=== PATIENT | female | born 1930 | race Caucasian/White ===

== ENCOUNTER 2017-11-22 00:43 | Inpatient (IN) | payer MEDICARE, OTHER ==
[~2017-11-22] VITALS: Ht 157.5 cm; Wt 62.3 kg
--- NOTE | 2017-11-22 01:25 | NUR ---
PT IN BED. PT'S FAMILY AT BEDSIDE. MD LAM AT BEDSIDE CONDUCTING MD SANCHEZ.
[2017-11-22 02:13] LABS: *BILIRUBIN,URIN NEGATIVE (NEGATIVE); *BLOOD, URINE 1+ (NEGATIVE); *CLARITY,URINE CLEAR (CLEAR); *COLOR,URINE YELLOW (YELLOW); *KETONES,URINE NEGATIVE (NEGATIVE); *PROTEIN,URINE NEGATIVE (NEGATIVE); LEUKOCYTE ESTERASE ,URINE NEGATIVE (NEGATIVE); NITRITE, URINE NEGATIVE (NEGATIVE); UGLUCOSE TRACE (NEGATIVE)
[2017-11-22 02:20] LABS: BACTERIA,URINE NONE SEEN /HPF (NONE SEEN); SQUAMOUS EPITHELIAL CELL,UR FEW /HPF (NONE SEEN); WBC,URINE 0-3 /HPF (0-3)
--- NOTE | 2017-11-22 02:25 | NUR ---
MD LAM MADE AWARE OF ELEVATED BLOOD PRESSURE
[2017-11-22] MEDS ORDERED: CLONIDINE HCL 0.1 MG TABLET ONE (02:27)
[2017-11-22] MEDS ORDERED: CLONIDINE HCL 0.1 MG TABLET PO ONE (02:30)
--- NOTE | 2017-11-22 03:35 | NUR ---
spoke with family.they know what medications are for but not the names and doses.will bring meds in am
[2017-11-22] MEDS ORDERED: ACETAMINOPHEN 325 MG TABLET PO PRN (03:45)
[2017-11-22] MEDS ORDERED: MAGNESIUM HYDROXIDE 30 ML LIQUID UDC PO PRN (03:45)
[2017-11-22] MEDS ORDERED: Z GUARD REMEDY PASTE 57 GM TUBE TOP PRN (03:45)
[2017-11-22] MEDS ORDERED: ONDANSETRON 4 MG/2 ML VIAL IV PRN (03:45)
--- NOTE | 2017-11-22 04:30 | NUR ---
REPORT GIVEN TO 2ND FLOOR, TELEMETRY NURSE, ZOË
[2017-11-22 04:38] LABS: HEMATOCRIT 34.5 % (37-47); HEMOGLOBIN 11.6 G/DL (12.0-16.0); MEAN CORPUSCULAR HEMOGLOBIN 27.7 UUG (27.0-31.0); MEAN CORPUSCULAR HGB CONC 34 g/dL (32.0-37.0); MEAN CORPUSCULAR VOLUME 82.3 FL (81.0-99.0); RED BLOOD CELL COUNT(AUTO) 4.19 MIL/UL (4.2-5.4); WHITE BLOOD COUNT (AUTO) 11.4 K/UL (4.0-11.2)
[2017-11-22 04:39] LABS: BASOPHILS % (AUTO) 0.4 % (0.0-2.0); EOSINOPHILS % (AUTO) 0.6 % (0.0-7.0); LYMPHOCYTES % (AUTO) 3.6 % (20.5-51.5); MONOCYTES % (AUTO) 8.4 % (0.0-11.0); PLATELET COUNT (AUTO) 166 K/UL (150-450)
[2017-11-22 04:58] LABS: CARBON DIOXIDE 26 mmol/L (21-32); CHLORIDE 95 mmol/L (98-107); GLUCOSE 162 mg/dL (74-106); POTASSIUM 3.7 mmol/L (3.5-5.1); UREA NITROGEN, BLOOD 36 mg/dL (7-20)
[2017-11-22 04:59] LABS: ALANINE AMINOTRANSFERASE 21 U/L (14-59); ALKALINE PHOSPHATASE 71 U/L (50-136); ASPARTATE AMINOTRANSFERASE 16 U/L (15-37); BILIRUBIN,TOTAL 0.8 mg/dL (0.1-1.0); CREATININE 1.5 mg/dL (0.6-1.3); PHOSPHOROUS 3.6 mg/dL (2.5-4.9)
[2017-11-22 05:00] LABS: MAGNESIUM 2.1 mg/dL (1.8-2.4); TOTAL PROTEIN, SERUM 7.1 g/dL (6.4-8.2)
--- NOTE | 2017-11-22 05:05 | NUR ---
Pt. admitted to TELEMETRY, under care of Dr. SEPULVEDA Belongs List completed
[2017-11-22 05:06] LABS: THYROID STIMULATING HORMONE 3.169 mIU/mL (0.358-3.740)
[2017-11-22 05:16] LABS: CHOLESTEROL 112 mg/dL (<200); HDL CHOLESTEROL 38 mg/dL (40-60); TRIGLYCERIDES 57 MG/DL (30-150)
[2017-11-22 05:30] VITALS: BP 157/83
--- NOTE | 2017-11-22 05:30 | NUR ---
Received patient to TELE floor with 2 daughters at bedside translating for patient. No skin issues noted. Belongings list completed. Daughters are asking a lot of questions. They are also saying that if patient needs surgery, she will not be having it at [facility] since "it's not a orthopedic hospital." Family states they are being left in the dark regarding care. Relayed to daughters all the information I had at this time and relayed at test and lab results that were available. Patient being kept NPO at this time except for medications. Patient is crying, but when asked states its not due to pain.
[2017-11-22] MEDS: HYDROCODONE/APAP 5-325MG TABLET PO PRN ×2 (05:45→20:44)
--- NOTE | 2017-11-22 08:14 | NUR ---
Pt is being seen and evaluated by Dr Seymour
--- NOTE | 2017-11-22 08:16 | NUR ---
Received medication from family members: escitalopram, Prednisolone, valsartan, zioptan
--- NOTE | 2017-11-22 08:23 | NUR ---
Called Dr Clayton and he is aware of the consultation needed for today. Family is also aware that Dr Clayton has been contacted
--- NOTE | 2017-11-22 08:28 | NUR ---
Will order breakfast and lunch for today and keep pt NPO after lunch, as ordered by Dr Seymour
[2017-11-22] MEDS ORDERED: PRED5DRO16 RIGHTEYE (09:15)
[2017-11-22] MEDS ORDERED: TAFL1DRO OP (09:18)
[2017-11-22] MEDS ORDERED: ESCI10TA55 PO (09:21)
[2017-11-22] MEDS ORDERED: VALS1TAB4 PO (09:21)
--- NOTE | 2017-11-22 09:30 | NUR ---
Family is requesting [facility] ([facility]) for B-L-D as supplement. Dietary informed. Home meds as previously mention given to pharmacy
[2017-11-22] MEDS ORDERED: ESCITALOPRAM OXALATE 10 MG TABLET PO SCH (10:45)
[2017-11-22] MEDS: ESCITALOPRAM OXALATE 10 MG TABLET PO SCH (11:09)
[2017-11-22] MEDS: PREDNISOLONE ACET 1% RIGHTEYE SCH ×2 (11:09→17:11)
--- NOTE | 2017-11-22 11:24 | NUR ---
Daughters request that I reach out to Dr Calloway and ask what is the expect hospital stay for the pt. Message was left for Dr. Calloway to please call back at his earliest convenience
[2017-11-22] MEDS: IV 1/2NS 1000 ML 1,000 ML IV PRN (11:31)
[2017-11-22 11:45] VITALS: BP 91/48
[2017-11-22 16:14] VITALS: BP 103/55
--- NOTE | 2017-11-22 18:17 | NUR ---
Pt has been complaint with nursing care and medications. Pt had her daughters by her side throughout the morning and early afternoon. Pt had visitors up till 4pm this afternoon. Pt states no pain. No immediate s/s of SOB, pain, distress or discomfort.
--- NOTE | 2017-11-22 19:30 | NUR ---
PATIENT IN BED, NO SOB NO CHEST PAIN NOTED, TURN AND REPOSITION, RYTHM SINUS RYTHM, FAMILY AT BEDSIDE, REQUEST FOR PAIN MEDS BEFORE GOING TO SLEEP TONIGHT. TURN AND REPOSITION, KEPT CLEAN AND DRY.
[2017-11-22 20:00] VITALS: BP 129/69
[2017-11-22] MEDS: ATORVASTATIN 10 MG TABLET PO SCH (20:40)
[2017-11-22] MEDS: TAFLUPROST EACHEYE SCH (20:40)
[2017-11-23] VITALS: BP 101/52
[2017-11-23 04:00] VITALS: BP 105/57
[2017-11-23 05:49] LABS: BASOPHILS % (AUTO) 0.4 % (0.0-2.0); EOSINOPHILS # (AUTO) 0.2 K/uL (0.0-0.7); EOSINOPHILS % (AUTO) 3.2 % (0.0-7.0); HEMATOCRIT 30.7 % (31.2-41.9); HEMOGLOBIN 10.5 g/dL (10.9-14.3); LYMPHOCYTES # (AUTO) 0.9 K/uL (20.0-40.0); LYMPHOCYTES % (AUTO) 12.7 % (20.5-51.5); MEAN CORPUSCULAR HEMOGLOBIN 28.5 uug (24.7-32.8); MEAN CORPUSCULAR HGB CONC 34 g/dL (32.3-35.6); MEAN CORPUSCULAR VOLUME 83.2 fL (75.5-95.3); MONOCYTES # (AUTO) 1.1 K/uL (2.0-10.0); NEUTROPHILS # (AUTO) 4.8 K/uL (1.8-8.9); NEUTROPHILS % (AUTO) 68.7 % (38.5-71.5); PLATELET COUNT (AUTO) 142 K/uL (179-408); RED BLOOD CELL COUNT(AUTO) 3.69 MIL/uL (3.63-4.92)
[2017-11-23 06:05] LABS: CARBON DIOXIDE 29 mmol/L (21-32); CHLORIDE 97 mmol/L (98-107); CREATININE 1.3 mg/dL (0.6-1.3); GLUCOSE 120 mg/dL (74-106); POTASSIUM 4.1 mmol/L (3.5-5.1); UREA NITROGEN, BLOOD 23 mg/dL (7-18)
[2017-11-23 06:38] LABS: WHITE BLOOD COUNT (AUTO) 7.1 K/uL (3.8-11.8)
--- NOTE | 2017-11-23 06:42 | NUR ---
PATIENT SLEPT MOST OF THE NIGHT, COMPLAIN OF PELVIC PAIN DUE TO FRACTURE, MEDICATED WITH EFFECTIVE RESULTS, TURN AND REPOSITION, KEPT CLEAN AND DRY, CONT TO MONITOR. RYTHM SINUS RYTHM.
--- NOTE | 2017-11-23 07:30 | NUR ---
Received pt in bed awake, alert and oriented. Pt states pain and point to her lower abdomen and pelvis area, no immediate s/s of SOB or distress.
[2017-11-23] MEDS: HYDROCODONE/APAP 5-325MG TABLET PO PRN ×2 (07:45→13:14)
--- NOTE | 2017-11-23 07:45 | NUR ---
Norborne given for pain around her lower abdomen and pelvis area. Pt gave me Timolol eye drop which she removed from her bedside purse, stating she that is 1 drop each eye BID.
[2017-11-23] MEDS: ESCITALOPRAM OXALATE 10 MG TABLET PO SCH (08:04)
[2017-11-23] MEDS ORDERED: TIMO5SOL11 EACHEYE (08:13)
--- NOTE | 2017-11-23 08:15 | NUR ---
Timolol eye drops given to pharmacy. Pt also stated she wants to take prednisolone eye drops at night and not in the AM. Pharmacist aware
[2017-11-23] MEDS ORDERED: TIMO5DRO18 EACHEYE (08:24)
--- NOTE | 2017-11-23 08:31 | NUR ---
Pt is noted to be eating her breakfast on her own
[2017-11-23] MEDS ORDERED: PREDNISOLONE ACET 1% RIGHTEYE SCH (09:00)
[2017-11-23 09:55] LABS: BASOPHILS % (MANUAL) 1 % (0-2); EOSINOPHILS % (MANUAL) 3 % (0-8); LYMPHOCYTES % (MANUAL) 11 % (20-40); MONOCYTES % (MANUAL) 13 % (2-10); NEUTROPHILS % (MANUAL) 72 % (42-75)
--- NOTE | 2017-11-23 10:15 | NUR ---
Family by bedside, daughter is requesting I can Dr Calloway and ask him when her mother will be discharged. Call Dr. Calloway and left him a message
[2017-11-23 11:07] VITALS: BP 96/40
[2017-11-23] MEDS: MORPHINE SULFATE 4 MG/1 ML DISP.SYRIN IV PRN (11:40)
--- NOTE | 2017-11-23 11:44 | NUR ---
Morphine given after changing the pt and stating she was in pain. Daughter and family by bedside.
--- NOTE | 2017-11-23 12:15 | NUR ---
Got a call back from Dr Calloway, Dr states that he is not the primary Dr in the hospital and that Dr Lorenzo is the primary dr in the hospital for the resident. Relayed the information to the daughter at bedside
--- NOTE | 2017-11-23 16:00 | NUR ---
Called [facility] offices and left message in regards to the pt low B/P. Waiting for response from doctor
[2017-11-23] MEDS ORDERED: TIMOLOL MALEATE 0.5% EACHEYE SCH (17:00)
--- NOTE | 2017-11-23 17:25 | NUR ---
Pt refused her scheduled Timolol eye drops, stating she wants to take them at night. Pt's own medication was taken down to pharmacy to switch out the label
[2017-11-23] MEDS: IV 1/2NS 1000 ML 1,000 ML IV PRN ×2 (18:21)
[2017-11-23 20:00] VITALS: BP 99/53
[2017-11-23] MEDS: ATORVASTATIN 10 MG TABLET PO SCH (21:12)
[2017-11-23] MEDS: ENOXAPARIN SODIUM 30 MG/0.3 ML DISP.SYRIN SUBCUT SCH (21:13)
[2017-11-23] MEDS: PREDNISOLONE ACET 1% RIGHTEYE SCH (21:13)
[2017-11-23] MEDS: TAFLUPROST EACHEYE SCH (21:14)
[2017-11-23] MEDS: TIMOLOL MALEATE 0.5% EACHEYE SCH (21:14)
--- NOTE | 2017-11-23 21:25 | NUR ---
Meds due given at this time including Tylenol 650 mg per preference for complaint of left hip pain in scale of 5/10. Patient refused/wasted Morphine. Will monitor. Good skin/ronit care rendered. Tolerated well.
[2017-11-24] VITALS: BP 98/57
[2017-11-24 04:00] VITALS: BP 108/61
[2017-11-24] MEDS: IV 1/2NS 1000 ML 1,000 ML IV PRN (05:44)
--- NOTE | 2017-11-24 06:16 | NUR ---
Slept well. No further complaint presented after pain meds given at 2118. VS stable. No significant event reported all night. All needs attended and met. Continue current plan of care.
--- NOTE | 2017-11-24 08:10 | NUR ---
Pt was changed, pulled up and repositioned for breakfast
[2017-11-24] MEDS: ESCITALOPRAM OXALATE 10 MG TABLET PO SCH (08:21)
[2017-11-24] MEDS: TIMOLOL MALEATE 0.5% EACHEYE SCH ×2 (08:22→21:20)
[2017-11-24] MEDS: MORPHINE SULFATE 4 MG/1 ML DISP.SYRIN IV PRN (10:53)
--- NOTE | 2017-11-24 10:55 | NUR ---
Pt was pre-medicated with pain medication for physical therapy
[2017-11-24 11:15] VITALS: BP 130/55
--- NOTE | 2017-11-24 11:15 | NUR ---
Pt was seen by physical therapy, daughter and family by bedside
--- NOTE | 2017-11-24 13:00 | NUR ---
Daughter left and states she wants to know if and when pt gets discharge to [facility],
[2017-11-24 15:16] VITALS: BP 122/75
--- NOTE | 2017-11-24 18:13 | NUR ---
Pt has been complaint with nursing care and medications. Daughter is by bedside. Pt has denied pain medication after one time Morphine pre-physical therapy session in am. Pt is under no immediate distress or SOB as of right now. Safety pre-cautions in place, bed at low set position for safety and call light with reach for assistance.
--- NOTE | 2017-11-24 20:00 | NUR ---
RECEIVED PATIENT AWAKE IN BED,, SHE'S AAOX3. DENIES PAIN, NO ACUTE DISTRESS ON ASSESSMENT. SAFETY AND COMFORT MEASURES IN PLACE, CALL LIGHT LEFT WITHIN PATIENT'S REACH
[2017-11-24 20:21] VITALS: BP 151/72
[2017-11-24] MEDS: PREDNISOLONE ACET 1% RIGHTEYE SCH (21:14)
[2017-11-24] MEDS: TAFLUPROST EACHEYE SCH (21:14)
[2017-11-24] MEDS: ATORVASTATIN 10 MG TABLET PO SCH (21:14)
[2017-11-24] MEDS: HYDROCODONE/APAP 5-325MG TABLET PO PRN (21:16)
[2017-11-24] MEDS: ENOXAPARIN SODIUM 30 MG/0.3 ML DISP.SYRIN SUBCUT SCH (21:17)
[2017-11-25 06:04] LABS: BASOPHILS % (AUTO) 0.6 % (0.0-2.0); EOSINOPHILS # (AUTO) 0.2 K/uL (0.0-0.7); EOSINOPHILS % (AUTO) 3.1 % (0.0-7.0); HEMATOCRIT 31.3 % (31.2-41.9); HEMOGLOBIN 10.7 g/dL (10.9-14.3); LYMPHOCYTES # (AUTO) 0.9 K/uL (20.0-40.0); LYMPHOCYTES % (AUTO) 12.8 % (20.5-51.5); MEAN CORPUSCULAR HEMOGLOBIN 28.5 uug (24.7-32.8); MEAN CORPUSCULAR HGB CONC 34 g/dL (32.3-35.6); MEAN CORPUSCULAR VOLUME 83.2 fL (75.5-95.3); MONOCYTES % (AUTO) 15.4 % (0.0-11.0); NEUTROPHILS # (AUTO) 4.6 K/uL (1.8-8.9); NEUTROPHILS % (AUTO) 68.1 % (38.5-71.5); PLATELET COUNT (AUTO) 155 K/uL (179-408); RED BLOOD CELL COUNT(AUTO) 3.77 MIL/uL (3.63-4.92); WHITE BLOOD COUNT (AUTO) 6.7 K/uL (3.8-11.8)
[2017-11-25 06:37] LABS: ALANINE AMINOTRANSFERASE 18 U/L (14-59); ALKALINE PHOSPHATASE 51 U/L (50-136); ASPARTATE AMINOTRANSFERASE 12 U/L (15-37); BILIRUBIN,TOTAL 0.6 mg/dL (0.2-1.0); CARBON DIOXIDE 28 mmol/L (21-32); CHLORIDE 100 mmol/L (98-107); CREATININE 1.1 mg/dL (0.6-1.3); GLUCOSE 113 mg/dL (74-106); MAGNESIUM 1.9 mg/dL (1.8-2.4); PHOSPHOROUS 3.8 mg/dL (2.5-4.9); POTASSIUM 4.3 mmol/L (3.5-5.1); TOTAL PROTEIN, SERUM 6.1 g/dL (6.4-8.2); UREA NITROGEN, BLOOD 15 mg/dL (7-18)
[2017-11-25 06:39] VITALS: BP 136/70
--- NOTE | 2017-11-25 06:50 | NUR ---
PATIENT IS ASLEEP, SLEPT WELL THROUGH THE SHIFT. PRN NORCO GIVEN X1 ON THIS SHIFT. NO S/S OF PAIN OR ACUTE DISTRESS AT PRESENT. SAFETY MEASURES MAINTAINED AT ALL TIMES
--- NOTE | 2017-11-25 07:30 | NUR ---
RECEIVED PATIENT AWAKE IN BED,, SHE'S AAOX3. DENIES PAIN, NO ACUTE DISTRESS ON ASSESSMENT. SAFETY AND COMFORT MEASURES IN PLACE, CALL LIGHT LEFT WITHIN PATIENT'S REACH
[2017-11-25 07:55] LABS: EOSINOPHILS % (MANUAL) 2 % (0-8); LYMPHOCYTES % (MANUAL) 19 % (20-40); MONOCYTES % (MANUAL) 7 % (2-10); NEUTROPHILS % (MANUAL) 72 % (42-75)
[2017-11-25] MEDS: ESCITALOPRAM OXALATE 10 MG TABLET PO SCH (08:13)
[2017-11-25] MEDS: TIMOLOL MALEATE 0.5% EACHEYE SCH ×2 (08:13→09:00)
[2017-11-25] MEDS: HYDROCODONE/APAP 5-325MG TABLET PO PRN (10:20)
[2017-11-25 10:51] VITALS: BP 113/50
[2017-11-25 14:57] VITALS: BP 115/63
--- NOTE | 2017-11-25 15:11 | NUR ---
d/c orders received noted and carried out.d/c instruction and education given to the pt and rn lela.d/c pt to aru via bed with heplock in stable condition.
[2017-11-25] MEDS ORDERED: ACET-2154 PO (16:04)
[2017-11-25] MEDS ORDERED: ATOR10TA PO (16:05)
[2017-11-25] MEDS ORDERED: ENOX40DI SQ (16:07)
[2017-11-25] MEDS ORDERED: HYDR-3326 PO (18:07)
[2017-11-25] MEDS ORDERED: MAGN400O6 PO (18:07)
[2017-11-25] MEDS ORDERED: TIMO5DRO18 EACHEYE (18:48)
[2017-11-25] MEDS ORDERED: PRED5DRO16 RIGHTEYE (18:48)
[2017-11-25] MEDS ORDERED: ONDA4VIA30 IV (18:48)
[2017-11-25] MEDS ORDERED: TAFL1DRO OP (18:48)
[2017-11-25] MEDS ORDERED: MORP15TA IV (18:48)
[2017-11-26 12:07] LABS: CALCITRIOL VIT D,1,25 DIHYDROX 51.7 pg/mL (19.9-79.3)
== END 2017-11-25 15:11 | DRG 535 ==
LOC: ER 00:51 → TELE 04:20 → MED 11-24 17:53
PROVIDERS: ADMIT Internal Medicine; ATTEND Internal Medicine
DX: S32.415A Nondisplaced fracture of anterior wall of left acetabulum, initial encounter for closed fracture (principal); N17.0 Acute kidney failure with tubular necrosis; S32.592A Other specified fracture of left pubis, initial encounter for closed fracture; E87.1 Hypo-osmolality and hyponatremia; J98.11 Atelectasis; W10.9XXA Fall (on) (from) unspecified stairs and steps, initial encounter; Y92.009 Unspecified place in unspecified non-institutional (private) residence as the place of occurrence of the external cause; Z88.1 Allergy status to other antibiotic agents; Z88.0 Allergy status to penicillin; E78.5 Hyperlipidemia, unspecified; Z96.651 Presence of right artificial knee joint; I11.9 Hypertensive heart disease without heart failure; M85.80 Other specified disorders of bone density and structure, unspecified site
CPT/HCPCS: 36415; 70030-TC; 71045; 72170; 72192; 73502; 82306; 82652; 83735; 83970; 84100; 84443; 85025; 85610; 86850; 86900; 86901; 93005; 97110; 97116; 97530; A4663; J1650; J2270; J2650; J3490; J7030

== ENCOUNTER 2017-11-25 15:57 | Inpatient (IN) | payer MEDICARE, OTHER ==
[~2017-11-25] VITALS: Ht 160 cm; Wt 49.0 kg
[~2017-11-25 15:57] MED LIST: ESCI10TA55 PO; PRED5DRO16 RIGHTEYE; TAFL1DRO OP; TIMO5DRO18 EACHEYE; VALS1TAB4 PO
[2017-11-25] MEDS ORDERED: ACET-2154 PO (16:04)
[2017-11-25] MEDS ORDERED: ATOR10TA PO (16:05)
[2017-11-25] MEDS ORDERED: ENOX40DI SQ (16:07)
[2017-11-25] MEDS ORDERED: HYDR-3326 PO (18:07)
[2017-11-25] MEDS ORDERED: MAGN400O6 PO (18:07)
[2017-11-25 18:44] VITALS: BP 111/61
[2017-11-25] MEDS ORDERED: Z GUARD REMEDY PASTE 57 GM TUBE TOP PRN (18:45)
[2017-11-25] MEDS ORDERED: PRED5DRO16 RIGHTEYE (18:48)
[2017-11-25] MEDS ORDERED: TIMO5DRO18 EACHEYE (18:48)
[2017-11-25] MEDS ORDERED: MORP15TA IV (18:48)
[2017-11-25] MEDS ORDERED: TAFL1DRO OP (18:48)
[2017-11-25] MEDS ORDERED: ONDA4VIA30 IV (18:48)
[2017-11-25] MEDS ORDERED: MAGNESIUM HYDROXIDE 30 ML LIQUID UDC PO PRN (20:00)
[2017-11-25] MEDS ORDERED: HYDROCODONE/APAP 5-325MG TABLET PO PRN (20:00)
[2017-11-25] MEDS ORDERED: ONDANSETRON 4 MG/2 ML VIAL IV PRN (20:00)
--- NOTE | 2017-11-25 20:00 | NUR ---
RECEIVED PATIENT AWAKE IN BED WITH DAUGHTER AT BEDSIDE. PATIENT IS A/O X3, FARSI SPEAKING ONLY, BUT ABLE TO MAKE SIMPLE NEEDS KNOWN. C/O PAIN IN LEFT HIP. VS WNL. NO RESP. DISTRESS NOTED. CALL LIGHT IN REACH. ALL NEEDS ATTENDED. WILL CONTINUE TO MONITOR AND ASSESS.
[2017-11-25] MEDS: OXYCODONE/APAP 5-325 MG TABLET PO PRN (20:08)
--- NOTE | 2017-11-25 20:10 | NUR ---
PATIENT GIVEN PERCOCET 1 TAB PO PRN FOR PAIN. WILL CONTINUE TO MONITOR.
[2017-11-25 20:51] VITALS: BP 119/62
[2017-11-25] MEDS: ENOXAPARIN SODIUM 30 MG/0.3 ML DISP.SYRIN SQ SCH (20:56)
[2017-11-25] MEDS: ATORVASTATIN 10 MG TABLET PO SCH (20:56)
[2017-11-25] MEDS ORDERED: TAFLUPROST OP SCH (21:00)
[2017-11-25] MEDS: TIMOLOL MALEATE 0.5% OPHT DROP 5 ML BOTTLE EACHEYE SCH (21:00)
[2017-11-25] MEDS: prednisoLONE ACET 1% OPHT DROP 5 ML BOTTLE RIGHTEYE SCH (21:00)
[2017-11-25] MEDS: EYE EACHEYE SCH (21:41)
[2017-11-25] MEDS: ZIOPTAN 0.0015% EACHEYE SCH (21:41)
--- NOTE | 2017-11-26 06:48 | NUR ---
PATIENT ASLEEP. NO S/S OF PAIN OR DISCOMFORT. SLEPT WELL. CALL LIGHT IN REACH. ALL NEEDS ATTENDED.
[2017-11-26 07:06] VITALS: BP 104/57
[2017-11-26] MEDS ORDERED: TIMOLOL MALEATE 0.5% OPHT DROP 5 ML BOTTLE EACHEYE SCH (09:00)
[2017-11-26] MEDS ORDERED: prednisoLONE ACET 1% OPHT DROP 5 ML BOTTLE RIGHTEYE SCH (09:00)
[2017-11-26] MEDS ORDERED: ENOXAPARIN SODIUM 40 MG/0.4 ML DISP.SYRIN SQ SCH (09:00)
[2017-11-26] MEDS: TIMOLOL MALEATE 0.5% OPHT DROP 5 ML BOTTLE EACHEYE SCH ×2 (09:16→20:08)
[2017-11-26] MEDS: ESCITALOPRAM OXALATE 10 MG TABLET PO SCH (09:17)
[2017-11-26] MEDS: OXYCODONE/APAP 5-325 MG TABLET PO PRN (09:20)
[2017-11-26] MEDS: HYDROCHLOROTHIAZIDE 12.5 MG CAPSULE PO SCH (09:24)
[2017-11-26] MEDS: VALSARTAN 160 MG TABLET PO SCH (09:24)
[2017-11-26 15:09] VITALS: BP 108/56
[2017-11-26] MEDS: ATORVASTATIN 10 MG TABLET PO SCH (20:08)
[2017-11-26] MEDS: EYE EACHEYE SCH (20:08)
[2017-11-26] MEDS: ZIOPTAN 0.0015% EACHEYE SCH (20:08)
[2017-11-26] MEDS: ENOXAPARIN SODIUM 30 MG/0.3 ML DISP.SYRIN SQ SCH (20:09)
[2017-11-26] MEDS: ACETAMINOPHEN 325 MG TABLET PO PRN (20:10)
[2017-11-26] MEDS: prednisoLONE ACET 1% OPHT DROP 5 ML BOTTLE RIGHTEYE SCH (20:11)
[2017-11-26 20:55] VITALS: BP 117/71
[2017-11-27] MEDS ORDERED: METHYL SALICYLATE/MENTHOL CREAM 28 GM TUBE TOP PRN (00:15)
--- NOTE | 2017-11-27 06:03 | NUR ---
Patient slept comfortably throughout the night. No c/o pain and discomfort. No acute distress. No SOB. Kept clean and dry. All needs attended to promptly. Call light within reach. Will continue to monitor.
[2017-11-27 06:52] VITALS: BP 122/64
[2017-11-27 08:00] VITALS: BP 106/62
[2017-11-27] MEDS: TIMOLOL MALEATE 0.5% OPHT DROP 5 ML BOTTLE EACHEYE SCH ×2 (09:32→20:51)
[2017-11-27] MEDS: HYDROCHLOROTHIAZIDE 12.5 MG CAPSULE PO SCH (09:32)
[2017-11-27] MEDS: ESCITALOPRAM OXALATE 10 MG TABLET PO SCH (09:33)
[2017-11-27] MEDS: VALSARTAN 160 MG TABLET PO SCH (09:34)
[2017-11-27] MEDS: OXYCODONE/APAP 5-325 MG TABLET PO PRN (11:53)
[2017-11-27 15:33] VITALS: BP 106/44
[2017-11-27] MEDS ORDERED: methylPREDNISolone ACETATE 40 MG VIAL IM ONE (18:45)
[2017-11-27] MEDS ORDERED: LIDOCAINE HCL 1% 20 ML VIAL IJ ONE (18:45)
--- NOTE | 2017-11-27 20:00 | NUR ---
PATIENT IN ROOM LAYING IN BED WITH NO DISTRESS NOTED,DENIES N/V,SOB. PATIENT IS A/OX4. FARSI SPEAKING BUT ABLE TO SPEAK AND UNDERSTAND [place] TO MAKE NEEDS KNOWN. PATIENT HAS PAIN ON PELVIC AREA BUT PAIN IS TOLERABLE.
[2017-11-27 20:04] VITALS: BP 102/55
[2017-11-27] MEDS: ATORVASTATIN 10 MG TABLET PO SCH (20:42)
[2017-11-27] MEDS: prednisoLONE ACET 1% OPHT DROP 5 ML BOTTLE RIGHTEYE SCH (20:45)
[2017-11-27] MEDS: ENOXAPARIN SODIUM 30 MG/0.3 ML DISP.SYRIN SQ SCH (20:50)
[2017-11-27] MEDS: EYE EACHEYE SCH (20:53)
[2017-11-27] MEDS: ZIOPTAN 0.0015% EACHEYE SCH (20:53)
[2017-11-28 06:34] VITALS: BP 110/55
--- NOTE | 2017-11-28 07:20 | NUR ---
Received report from floriculture professor nurse, patient in bed, no distress noted at this time, bed in low position, side rails up x2. Bed alarm set. Call light within reach.
[2017-11-28 08:00] VITALS: BP 114/54
[2017-11-28] MEDS: HYDROCHLOROTHIAZIDE 12.5 MG CAPSULE PO SCH (09:14)
[2017-11-28] MEDS: VALSARTAN 160 MG TABLET PO SCH (09:14)
[2017-11-28] MEDS: ESCITALOPRAM OXALATE 10 MG TABLET PO SCH (09:14)
[2017-11-28] MEDS: TIMOLOL MALEATE 0.5% OPHT DROP 5 ML BOTTLE EACHEYE SCH ×2 (09:15→20:23)
--- NOTE | 2017-11-28 13:52 | NUR ---
INTERDISCIPLINARY TEAM CONFERENCE
--- NOTE | 2017-11-28 15:16 | NUR ---
I agree Addendum: 11/28/17 at 1517 by ELIDIA KHAN OT Amended: Links added.
--- NOTE | 2017-11-28 15:17 | NUR ---
I agree Addendum: 11/28/17 at 1518 by ELIDIA KHAN OT Amended: Links added.
[2017-11-28 15:48] VITALS: BP 110/58
[2017-11-28] MEDS ORDERED: ALEN70TA3 PO (16:58)
--- NOTE | 2017-11-28 18:22 | NUR ---
Patient has been cooperative with care, evaluation revealed toe touch weight bearing. Patients family reports that she is shy and will not ask for anything and should be offered tea or water and toileting every hour, in addition to pain assessment. Currently patient in wheelchair with family at bedside. All needs met, and no distress noted at this time.
--- NOTE | 2017-11-28 19:30 | NUR ---
Received patient in bed. Alert and verbally responsive. Able to make needs known. Denies any pain and discomfort. No acute distress. No SOB. Kept clean and dry. All needs attended to promptly. Call light within reach. Will continue to monitor.
[2017-11-28] MEDS: EYE EACHEYE SCH (20:23)
[2017-11-28] MEDS: ATORVASTATIN 10 MG TABLET PO SCH (20:23)
[2017-11-28] MEDS: ZIOPTAN 0.0015% EACHEYE SCH (20:23)
[2017-11-28] MEDS: prednisoLONE ACET 1% OPHT DROP 5 ML BOTTLE RIGHTEYE SCH (20:27)
[2017-11-28] MEDS: ACETAMINOPHEN 325 MG TABLET PO PRN (20:27)
[2017-11-28] MEDS: ENOXAPARIN SODIUM 30 MG/0.3 ML DISP.SYRIN SQ SCH (20:32)
[2017-11-28 20:42] VITALS: BP 132/62
[2017-11-29] MEDS: ALENDRONATE SODIUM 70 MG TABLET PO SCH (06:29)
--- NOTE | 2017-11-29 06:55 | NUR ---
Patient slept comfortably throughout the night. No c/o pain and discomfort. No acute distress. Pericare provided. Kept clean and dry. All needs attended to promptly. Call light within reach. Will continue to monitor.
--- NOTE | 2017-11-29 08:00 | NUR ---
Patient awake, sitting on the wheelchair, verbally responsive, able to make needs known, not in any form of acute distress. She denies any pain or discomfort at this time. Call light placed within reach. Reminded to use call light when in need of assistance with verbalized understanding. Assisted to her needs.
[2017-11-29 08:28] VITALS: BP 133/75
[2017-11-29] MEDS: ESCITALOPRAM OXALATE 10 MG TABLET PO SCH (10:02)
[2017-11-29] MEDS: VALSARTAN 160 MG TABLET PO SCH (10:07)
[2017-11-29] MEDS: HYDROCHLOROTHIAZIDE 12.5 MG CAPSULE PO SCH (10:07)
[2017-11-29] MEDS: TIMOLOL MALEATE 0.5% OPHT DROP 5 ML BOTTLE EACHEYE SCH ×2 (10:08→20:05)
[2017-11-29] MEDS: ACETAMINOPHEN 325 MG TABLET PO PRN ×2 (10:57→20:02)
--- NOTE | 2017-11-29 19:30 | NUR ---
PT ALERT AND ORIENTED IN BED. NO DISTRESS NOTED. COMPLIANT WITH NURSING CARE. SAFETY MAINTAINED. CALL LIGHT WITHIN REACH. WILL CONTINUE TO MONITOR.
[2017-11-29] MEDS: ATORVASTATIN 10 MG TABLET PO SCH (20:01)
[2017-11-29] MEDS: prednisoLONE ACET 1% OPHT DROP 5 ML BOTTLE RIGHTEYE SCH (20:03)
[2017-11-29 20:04] VITALS: BP 131/61
[2017-11-29] MEDS: ZIOPTAN 0.0015% EACHEYE SCH (20:05)
[2017-11-29] MEDS: EYE EACHEYE SCH (20:05)
[2017-11-29] MEDS: ENOXAPARIN SODIUM 30 MG/0.3 ML DISP.SYRIN SQ SCH (20:06)
--- NOTE | 2017-11-30 06:36 | NUR ---
PT IS RESTING IN BED. NO DISTRESS NOTED. COMPLIANT WITH NURSING CARE. SLEPT WELL THROUGHOUT THE NIGHT. CLEAN AND DRY. SAFETY MAINTAINED. CALL LIGHT WITHIN REACH.
[2017-11-30 07:49] LABS: BASOPHILS % (AUTO) 0.5 % (0.0-2.0); EOSINOPHILS # (AUTO) 0.2 K/uL (0.0-0.7); HEMATOCRIT 33.4 % (31.2-41.9); HEMOGLOBIN 11.4 g/dL (10.9-14.3); LYMPHOCYTES # (AUTO) 1.1 K/uL (20.0-40.0); LYMPHOCYTES % (AUTO) 12.4 % (20.5-51.5); MEAN CORPUSCULAR HEMOGLOBIN 28.4 uug (24.7-32.8); MEAN CORPUSCULAR HGB CONC 34 g/dL (32.3-35.6); MEAN CORPUSCULAR VOLUME 82.8 fL (75.5-95.3); MONOCYTES # (AUTO) 1.1 K/uL (2.0-10.0); MONOCYTES % (AUTO) 12.7 % (0.0-11.0); NEUTROPHILS # (AUTO) 6.4 K/uL (1.8-8.9); NEUTROPHILS % (AUTO) 72.4 % (38.5-71.5); PLATELET COUNT (AUTO) 252 K/uL (179-408); RED BLOOD CELL COUNT(AUTO) 4.03 MIL/uL (3.63-4.92); WHITE BLOOD COUNT (AUTO) 8.9 K/uL (3.8-11.8)
[2017-11-30 08:00] VITALS: BP 148/87
[2017-11-30 08:05] LABS: CARBON DIOXIDE 27 mmol/L (21-32); CHLORIDE 99 mmol/L (98-107); CREATININE 1.1 mg/dL (0.6-1.3); GLUCOSE 112 mg/dL (74-106); MAGNESIUM 2.1 mg/dL (1.8-2.4); POTASSIUM 4.1 mmol/L (3.5-5.1); UREA NITROGEN, BLOOD 38 mg/dL (7-18)
[2017-11-30] MEDS: ESCITALOPRAM OXALATE 10 MG TABLET PO SCH (08:27)
[2017-11-30] MEDS: VALSARTAN 160 MG TABLET PO SCH (08:29)
[2017-11-30] MEDS: HYDROCHLOROTHIAZIDE 12.5 MG CAPSULE PO SCH (08:29)
[2017-11-30] MEDS: ACETAMINOPHEN 325 MG TABLET PO PRN (08:32)
[2017-11-30] MEDS: TIMOLOL MALEATE 0.5% OPHT DROP 5 ML BOTTLE EACHEYE SCH ×2 (08:33→21:36)
[2017-11-30 15:58] VITALS: BP 106/60
--- NOTE | 2017-11-30 18:27 | NUR ---
Daily Nursing Note Patient was awake, alert, able to make needs known, compliant with therapy and care, not in distress, kept clean and dry, needs attended promptly due medications, given, family visited and appreciated care done for patient. Will continue to monitor
--- NOTE | 2017-11-30 21:15 | NUR ---
RECEIVED Pt IN BED, AWAKE, A/O X 4, ASSISTED TO THE BATHROOM, DENIES PAIN AND DISCOMFORT AT THIS TIME, NO NOTED DISTRESS. COOPERATIVE AND COMPLIANT WITH MEDS AND CARE STAFF, TOLERATED ALL MEDS THIS EVENING. EMPHASIZED SAFETY, BED AT LOWEST POSITION WITH WHEELS LOCKED AND SIDE RAILS UP X 2, CALL LIGHT IN PLACE. Pt ABLE TO MAKE NEEDS KNOWN.
[2017-11-30] MEDS: ATORVASTATIN 10 MG TABLET PO SCH (21:35)
[2017-11-30] MEDS: prednisoLONE ACET 1% OPHT DROP 5 ML BOTTLE RIGHTEYE SCH (21:37)
[2017-11-30] MEDS: ZIOPTAN 0.0015% EACHEYE SCH (21:38)
[2017-11-30] MEDS: EYE EACHEYE SCH (21:38)
[2017-11-30] MEDS: ENOXAPARIN SODIUM 30 MG/0.3 ML DISP.SYRIN SQ SCH (21:45)
[2017-11-30 22:08] VITALS: BP 110/64
[2017-12-01 05:05] VITALS: BP 122/67
[2017-12-01] MEDS: TIMOLOL MALEATE 0.5% OPHT DROP 5 ML BOTTLE EACHEYE SCH ×2 (08:12→21:25)
[2017-12-01] MEDS: VALSARTAN 160 MG TABLET PO SCH (08:13)
[2017-12-01] MEDS: ESCITALOPRAM OXALATE 10 MG TABLET PO SCH (08:13)
[2017-12-01] MEDS: HYDROCHLOROTHIAZIDE 12.5 MG CAPSULE PO SCH (08:13)
--- NOTE | 2017-12-01 08:26 | NUR ---
I agree Addendum: 12/01/17 at 0308 by ELIDIA KHAN OT Amended: Links added.
--- NOTE | 2017-12-01 08:26 | NUR ---
I agree Addendum: 12/01/17 at 0827 by ELIDIA KHAN OT Amended: Links added.
[2017-12-01 08:29] VITALS: BP 125/71
--- NOTE | 2017-12-01 11:09 | NUR ---
MD JUAREZ WILL BE IN TO SEE HER SOMETIME TODAY. I SPOKE WITH STEFAN IN HIS OFFICE AND ASKED IF HE COULD COME AND SEE THE PT REQUESTED BY PHYSICAL THERAPY. THERE ARE QUESTIONS REGARDING HER WT BEARING STATUS FOR THERAPY FROM THE PHYSICAL THERAPIST AND FAMILY. HIS OFFICE SAYS HE WILL BE HERE TODAY BUT UNSURE OF THE TIME. Addendum: 12/01/17 at 1114 by Nunu Smith RN HIS OFFICE NUMBER IS [phone]
[2017-12-01] MEDS: ACETAMINOPHEN 325 MG TABLET PO PRN (13:33)
--- NOTE | 2017-12-01 14:32 | NUR ---
MEDICATION STEFANO ACCORDING TO PHARMACY SHE ONLY HAS A FEW DOSES LEFT INFORMED HER TO TELL HER DAUGHTER TO BRING MORE. SHE VERBALIZED UNDERSTANDING
[2017-12-01 20:02] VITALS: BP 124/69
--- NOTE | 2017-12-01 20:34 | NUR ---
bedrest maintained. aaox4 no acute distress noted. kept comfortable. compliant with meds and care. needs attended. voiding without difficulty. tolerated po meds. fall precautions maintained. siderails up for safety. denies any pain nor any discomfort.
[2017-12-01] MEDS: ATORVASTATIN 10 MG TABLET PO SCH (21:23)
[2017-12-01] MEDS: prednisoLONE ACET 1% OPHT DROP 5 ML BOTTLE RIGHTEYE SCH (21:25)
[2017-12-01] MEDS: ZIOPTAN 0.0015% EACHEYE SCH (21:27)
[2017-12-01] MEDS: EYE EACHEYE SCH (21:27)
[2017-12-01] MEDS: ENOXAPARIN SODIUM 30 MG/0.3 ML DISP.SYRIN SQ SCH (21:29)
--- NOTE | 2017-12-02 05:55 | NUR ---
slept well. OOB to the BR with supervision. Voiding without difficulty. needs attended. kept comfortable. no complaints presented during the shift.
[2017-12-02] MEDS: TIMOLOL MALEATE 0.5% OPHT DROP 5 ML BOTTLE EACHEYE SCH ×2 (08:44→20:47)
[2017-12-02] MEDS: ESCITALOPRAM OXALATE 10 MG TABLET PO SCH (08:44)
[2017-12-02 08:45] VITALS: BP 106/50
[2017-12-02] MEDS: HYDROCHLOROTHIAZIDE 12.5 MG CAPSULE PO SCH (08:45)
[2017-12-02] MEDS: VALSARTAN 160 MG TABLET PO SCH (08:45)
--- NOTE | 2017-12-02 19:30 | NUR ---
Received patient in bed. Alert and verbally responsive. Able to make needs known. Denies any pain and discomfort. No acute distress. No SOB. Assisted to the bathroom with walker. Kept clean and dry. All needs attended to promptly. Call light within reach. Will continue to monitor.
[2017-12-02] MEDS: ATORVASTATIN 10 MG TABLET PO SCH (20:46)
[2017-12-02] MEDS: prednisoLONE ACET 1% OPHT DROP 5 ML BOTTLE RIGHTEYE SCH (20:47)
[2017-12-02] MEDS: EYE EACHEYE SCH (20:47)
[2017-12-02] MEDS: ZIOPTAN 0.0015% EACHEYE SCH (20:47)
[2017-12-02] MEDS: ENOXAPARIN SODIUM 30 MG/0.3 ML DISP.SYRIN SQ SCH (20:52)
[2017-12-02 21:28] VITALS: BP 101/60
[2017-12-03 05:38] VITALS: BP 125/62
--- NOTE | 2017-12-03 07:51 | NUR ---
I agree Addendum: 12/03/17 at 0752 by TAINA THOMASON OT Amended: Links added.
--- NOTE | 2017-12-03 07:52 | NUR ---
I agree Addendum: 12/03/17 at 0753 by TAINA THOMASON OT Amended: Links added.
--- NOTE | 2017-12-03 07:53 | NUR ---
I agree Addendum: 12/03/17 at 0754 by TAINA THOMASON OT Amended: Links added.
--- NOTE | 2017-12-03 08:10 | NUR ---
Received patient, awake alert x4. Morning care done. Assisted to bathroom, reinforced toe touch weight bearing status. Tolerating well, with minimal pain over left hip and leg. Not in any form of distress. Call light within reach. Will continue to monitor.
[2017-12-03] MEDS: TIMOLOL MALEATE 0.5% OPHT DROP 5 ML BOTTLE EACHEYE SCH ×2 (08:28→20:43)
[2017-12-03] MEDS: ACETAMINOPHEN 325 MG TABLET PO PRN (08:29)
[2017-12-03] MEDS: SENNOSIDES/DOCUSATE SODIUM TABLET PO SCH (08:29)
[2017-12-03] MEDS: HYDROCHLOROTHIAZIDE 12.5 MG CAPSULE PO SCH (08:29)
[2017-12-03] MEDS: VALSARTAN 160 MG TABLET PO SCH (08:29)
[2017-12-03] MEDS: ESCITALOPRAM OXALATE 10 MG TABLET PO SCH (08:29)
[2017-12-03 08:41] VITALS: BP 113/44
--- NOTE | 2017-12-03 09:05 | NUR ---
With pain over left hip and knee, tolerable. PRN Tylenol given. Up with occupational therapy. Tolerating therapy well.
--- NOTE | 2017-12-03 20:00 | NUR ---
Received pt sitting on bed alert and verbally responsive. No apparent distress noted. Family member at bedside. Denies pain at this time. No SOB noted. Ambulates to the bathroom with walker and with standby assistance. pt refused timolol eyedrop, states that she only takes that every morning. Explained risk and benefits but still pt refused. Call light within reach. Safety and fall precautions observed and maintained. All needs attended.
[2017-12-03 20:33] VITALS: BP 109/61
[2017-12-03] MEDS: prednisoLONE ACET 1% OPHT DROP 5 ML BOTTLE RIGHTEYE SCH (20:41)
[2017-12-03] MEDS: EYE EACHEYE SCH (20:43)
[2017-12-03] MEDS: ZIOPTAN 0.0015% EACHEYE SCH (20:43)
[2017-12-03] MEDS: ATORVASTATIN 10 MG TABLET PO SCH (20:45)
[2017-12-03] MEDS: ENOXAPARIN SODIUM 30 MG/0.3 ML DISP.SYRIN SQ SCH (20:49)
[2017-12-04 06:31] VITALS: BP 109/58
[2017-12-04 08:00] VITALS: BP 106/56
[2017-12-04] MEDS: VALSARTAN 160 MG TABLET PO SCH (09:00)
[2017-12-04] MEDS: HYDROCHLOROTHIAZIDE 12.5 MG CAPSULE PO SCH (09:02)
[2017-12-04] MEDS: SENNOSIDES/DOCUSATE SODIUM TABLET PO SCH (09:02)
[2017-12-04] MEDS: ESCITALOPRAM OXALATE 10 MG TABLET PO SCH (09:02)
[2017-12-04] MEDS: TIMOLOL MALEATE 0.5% OPHT DROP 5 ML BOTTLE EACHEYE SCH (09:03)
--- NOTE | 2017-12-04 09:51 | NUR ---
Patient noted resting in bed, easily arouses, states pain of 2/10, no signs of distress noted, call light in reach, bed locked and in lowest position, x [address]
[2017-12-04 15:38] VITALS: BP 99/53
--- NOTE | 2017-12-04 19:53 | NUR ---
Received pt sitting on bed alert and verbally responsive. No acute distress noted. Denies pain at this time. No SOB noted. Ambulates to the bathroom with walker and with standby assistance. vital signs stable. Call light within reach. Safety and fall precautions observed and maintained. All needs attended.
[2017-12-04] MEDS: ATORVASTATIN 10 MG TABLET PO SCH (20:13)
[2017-12-04] MEDS: EYE EACHEYE SCH (20:14)
[2017-12-04] MEDS: ZIOPTAN 0.0015% EACHEYE SCH (20:14)
[2017-12-04] MEDS: prednisoLONE ACET 1% OPHT DROP 5 ML BOTTLE RIGHTEYE SCH (20:14)
[2017-12-04] MEDS: ENOXAPARIN SODIUM 30 MG/0.3 ML DISP.SYRIN SQ SCH (20:18)
[2017-12-04 20:39] VITALS: BP 104/55
[2017-12-05 06:42] VITALS: BP 111/66
[2017-12-05] MEDS: ACETAMINOPHEN 325 MG TABLET PO PRN (08:12)
[2017-12-05] MEDS: SENNOSIDES/DOCUSATE SODIUM TABLET PO SCH (08:13)
[2017-12-05] MEDS: VALSARTAN 160 MG TABLET PO SCH (08:13)
[2017-12-05] MEDS: ESCITALOPRAM OXALATE 10 MG TABLET PO SCH (08:13)
[2017-12-05] MEDS: HYDROCHLOROTHIAZIDE 12.5 MG CAPSULE PO SCH (08:15)
[2017-12-05 08:21] VITALS: BP 113/64
[2017-12-05] MEDS: TIMOLOL MALEATE 0.5% OPHT DROP 5 ML BOTTLE EACHEYE SCH (09:28)
--- NOTE | 2017-12-05 12:33 | NUR ---
PT. IS ALERT AND ORIENTEDX3-4. NOT IN DISTRESS. COMPLAINING OF BURNING SENSATION ON INNER BILATERAL UPPER GROIN. HOT PACK GIVEN WITH GOOD EFFECT. WILL CONTINUE MONITOR
[2017-12-05 16:14] VITALS: BP 100/46
--- NOTE | 2017-12-05 20:00 | NUR ---
Received pt sitting on bed. Observed pt ambulating to the restroom using walker, standby assist provided. VSS. No acute distress noted. No c/o pain or discomfort. Pt to be discharged tomorrow. Safety measures maintained. Call light and personal belongings within reach. Will continue to monitor.
[2017-12-05] MEDS: ATORVASTATIN 10 MG TABLET PO SCH (20:11)
[2017-12-05] MEDS: EYE EACHEYE SCH (20:11)
[2017-12-05] MEDS: ZIOPTAN 0.0015% EACHEYE SCH (20:11)
[2017-12-05] MEDS: prednisoLONE ACET 1% OPHT DROP 5 ML BOTTLE RIGHTEYE SCH (20:11)
[2017-12-05] MEDS: ENOXAPARIN SODIUM 30 MG/0.3 ML DISP.SYRIN SQ SCH (20:19)
[2017-12-06] MEDS: ALENDRONATE SODIUM 70 MG TABLET PO SCH (06:09)
[2017-12-06 08:05] VITALS: BP 130/66
[2017-12-06 08:30] VITALS: BP 133/66
[2017-12-06] MEDS: ESCITALOPRAM OXALATE 10 MG TABLET PO SCH (08:30)
[2017-12-06] MEDS: VALSARTAN 160 MG TABLET PO SCH (08:30)
[2017-12-06] MEDS: SENNOSIDES/DOCUSATE SODIUM TABLET PO SCH (08:30)
[2017-12-06] MEDS: HYDROCHLOROTHIAZIDE 12.5 MG CAPSULE PO SCH (08:30)
[2017-12-06] MEDS: TIMOLOL MALEATE 0.5% OPHT DROP 5 ML BOTTLE EACHEYE SCH (08:31)
--- NOTE | 2017-12-06 14:00 | NUR ---
NURSE NOTES: patient alert and oriented x 4 able to make needs known remained stable throughout the shift with no acute changes. No changes in Loc or mentation. All due medications were given- tolerated well. all needs attended and anticipated. Patient was discharged home with daughter. Patient's daughter refused to use the ambulance transportation that was set up by insurance case manager. Health teachings were given to daughter and patient- using teach back method. Instructed patient and daughter regarding scheduled appointments with [facility] and Dr. Clayton with with CD of the x-ray. Patient was discharged with her wheelchair, accompanied to private vehicle with daughter. left in stable condition with all belongings complete with intact skin.
--- NOTE | 2017-12-08 11:22 | NUR ---
INTERDISCIPLINARY TEAM CONFERENCE
== END 2017-12-06 14:00 | disposition home health service (06) | DRG 561 ==
PROVIDERS: ADMIT Physical Medicine & Rehabilitation Pain Medicine; ATTEND Physical Medicine & Rehabilitation Pain Medicine
DX: S32.592D Other specified fracture of left pubis, subsequent encounter for fracture with routine healing (principal); H40.9 Unspecified glaucoma; I10 Essential (primary) hypertension; S32.10XD Unspecified fracture of sacrum, subsequent encounter for fracture with routine healing; S32.409D Unspecified fracture of unspecified acetabulum, subsequent encounter for fracture with routine healing; S73.192D Other sprain of left hip, subsequent encounter; W10.9XXD Fall (on) (from) unspecified stairs and steps, subsequent encounter; M85.80 Other specified disorders of bone density and structure, unspecified site; R26.9 Unspecified abnormalities of gait and mobility; Z88.1 Allergy status to other antibiotic agents; Z88.0 Allergy status to penicillin; Z88.8 Allergy status to other drugs, medicaments and biological substances
CPT/HCPCS: 36415; 73502; 83735; 84100; 85025; 92526; 92610; 97110; 97112; 97116; 97165; 97530; 97535; J1030; J1650; J2650; J3490; J8499